=== PATIENT | female | born 1975 | race Caucasian/White ===

== ENCOUNTER → 2023-11-30 | Outpatient (CLI) | payer OTHER ==
[~2023-11-30] MED LIST: IBUP600T26 PO; LABE300T PO; LIDOCAINE 1% MDV 20ML VIAL As Ordered ONE; LORTAB PO; PRENTAB66 PO
[2023-11-30 09:32] VITALS: TEMP 98.5
[2023-11-30 10:08] VITALS: BP 162/90; O2SAT 99
== END ==
LOC: M IRPRO 09:24
PROVIDERS: ATTEND Otolaryngology
DX: R22.1 Localized swelling, mass and lump, neck (principal)

== ENCOUNTER → 2024-11-27 | Outpatient (CLI) | payer OTHER ==
[~2024-11-27] MED LIST changes: -LIDOCAINE 1% MDV 20ML VIAL As Ordered ONE
== END ==
LOC: M RAD 15:09
PROVIDERS: ATTEND Otolaryngology
DX: E04.1 Nontoxic single thyroid nodule (principal); R22.1 Localized swelling, mass and lump, neck